=== PATIENT | male | born 1950 | race Caucasian/White ===

== ENCOUNTER 2018-08-21 09:06 | Outpatient (CLI) | payer OTHER ==
--- NOTE | 2018-08-21 10:45 | Ultrasound Report ---
Reason: PROC/TRTMT NOT CRD OUT BEC, NON PREVIOUS Procedure Date: 08/21/2018 Accession Number: [id number] / [id number] Procedure: US - Aorta Screening CPT Code: FULL RESULT: EXAM: AORTIC DOPPLER ULTRASOUND EXAM DATE: 08/21/2018 09:50 AM. CLINICAL HISTORY: AAA screening. COMPARISON: None. TECHNIQUE: Real-time sonographic imaging of retroperitoneal vascular structures, including color-flow, Doppler flow and spectral analysis was performed by the dish maker. Multiple medical claims representative static images were saved for review. FINDINGS: Aorta: The abdominal aorta was adequately visualized. No evidence for abdominal aortic aneurysm. Aorta: Proxima: Sagittal AP 2.3 cm. Mid: Transverse 1.8 x 2.0 cm. Distal: Transverse 1.6 x 1.6 cm. Caliber: WNL: Yes. Plaque visualized: Yes. Iliacs: Right Iliac: Transverse 1.0 x 0.9 cm. Left Iliac: Transverse 1.0 x 1.0 cm. Iliac Vessels: The visualized proximal common iliac arteries are normal in caliber. Other: None. IMPRESSION: Normal. No abdominal aortic aneurysm. [facility]
== END 2018-08-21 09:07 | disposition home or self-care (01) ==
LOC: DI 09:06
PROVIDERS: ATTEND Family Medicine
DX: Z13.6 Encounter for screening for cardiovascular disorders (principal)
CPT/HCPCS: 76706